=== PATIENT | female | born 1950 | race Hispanic/Latino ===

== ENCOUNTER → 2019-06-08 | Outpatient (CLI) | payer OTHER ==
[~2019-06-08] MED LIST: ASPI-555 PO; DOXY25TA55 PO; IOHEXOL-350 50ML VIAL IV ONE; OMEG-125 PO; PRAM0.375 PO; PRAV20TA4 PO
== END | disposition home or self-care (01) ==
LOC: RAH 09:24
PROVIDERS: ATTEND Family Medicine
DX: I25.10 Atherosclerotic heart disease of native coronary artery without angina pectoris (principal); I73.9 Peripheral vascular disease, unspecified; I70.1 Atherosclerosis of renal artery
CPT/HCPCS: 75635; Q9967